=== PATIENT | male | born 1990 ===

== ENCOUNTER 2018-06-01 23:20 | Emergency (ER) | payer OTHER ==
[2018-06-02 00:13] VITALS: TEMP 97.6
--- NOTE | 2018-06-02 00:31 | ED PDOC ---
Arrival/HPI - General Chief Complaint: Upper Extremity Problem/Injury Time Seen by Provider: 06/02/18 00:18 Historian: Patient - History of Present Illness Narrative History of Present Illness (Text): 06/02/18 00:27 27 y/o M w/ no significant past medical history present to the emergency department accompanied by complaining of left elbow pain. 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 Patient reports pain exacerbates upon movement and has taken 2 tablets of Aleve for pain to some relief. Patient states he has kept his arm in one position, in a sling, and denies any shoulder pain or numbness or tingling in his left hand. Patient notes he has not had any previous left elbow issues. Patient denies any fever, chills, shortness of breath, chest pain, diarrhea, nausea, vomiting, urinary symptoms, back pain, neck pain, headache, dizziness, or any other complaints. 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) Past Medical History - Gastrointestinal Other/Comment: anal fissure - Psychiatric Hx Substance Use: No Family/Social History Smoking Status: Never Smoked Hx Alcohol Use: No Hx Substance Use: No Allergies/Home Meds Allergies/Adverse Reactions: Allergies No Known Allergies Allergy (Verified 06/02/18 00:01) Review of Systems - Physician Review All systems were reviewed & negative as marked: Yes - Review of Systems Constitutional: absent: Fevers, Night Sweats Respiratory: absent: SOB Cardiovascular: absent: Chest Pain Gastrointestinal: absent: Diarrhea, Nausea, Vomiting Genitourinary Male: absent: Urinary Output Changes Musculoskeletal: Other (+left elbow pain). absent: Back Pain, Neck Pain Neurological: absent: Headache, Dizziness Physical Exam Vital Signs Reviewed: Yes Vital Signs Temp Pulse Resp BP Pulse Ox 06/02/18 00:12 97.6 F 70 18 130/77 98 Temperature: Afebrile Blood Pressure: Normal Pulse: Regular Respiratory Rate: Normal Appearance: Positive for: Well-Appearing, Non-Toxic, Comfortable Pain Distress: None Mental Status: Positive for: Alert and Oriented X 3 - Systems Exam Head: Present: Atraumatic, Normocephalic Pupils: Present: PERRL Extroacular Muscles: Present: EOMI Conjunctiva: Present: Normal Mouth: Present: Moist Mucous Membranes Neck: Present: Normal Range of Motion Respiratory/Chest: Present: Clear to Auscultation, Good Air Exchange. No: Respiratory Distress, Accessory Muscle Use Cardiovascular: Present: Regular Rate and Rhythm, Normal S1, S2. No: Murmurs Abdomen: No: Tenderness, Distention, Peritoneal Signs Back: Present: Normal Inspection Upper Extremity: Present: Tenderness (+tenderness to palpation of left elbow joint), Swelling (+slight swelling of left elbow), Other (+pain upon extension and inflexion of left elbow) Lower Extremity: Present: Normal Inspection. No: Edema Neurological: Present: GCS=15, CN II-XII Intact, Speech Normal Skin: Present: Warm, Dry, Normal Color. No: Rashes Psychiatric: Present: Alert, Oriented x 3, Normal Insight, Normal Concentration Medical Decision Making ED Course and Treatment: 06/02/18 00:27 Impression 27 y/o M presenting with left elbow pain. Differential Diagnoses Include But Are Not Limited To: Plan --Toradol --Xray of left elbow --Reassess & disposition Progress Notes - RAD Interpretation Radiology Orders: 06/02/18 00:25 ELBOW LEFT 3 VIEWS ROUTINE [RAD] Stat - Medication Orders Current Medication Orders: Ketorolac Tromethamine (Toradol) 60 mg IM STAT STA Stop: 06/02/18 00:26 - Scribe Statement The provider has reviewed the documentation as recorded by the Kuldeepibe Magy Gamboa All medical record entries made by the Scribe were at my direction and personally dictated by me. I have reviewed the chart and agree that the record accurately reflects my personal performance of the history, physical exam, medical decision making, and the department course for this patient. I have also personally directed, reviewed, and agree with the discharge instructions and disposition. Disposition/Present on Arrival - Present on Arrival Any Indicators Present on Arrival: No History of DVT/PE: No History of Uncontrolled Diabetes: No Urinary Catheter: No History of Decub. Ulcer: No History Surgical Site Infection Following: None - Disposition Have Diagnosis and Disposition been Completed?: No Diagnosis: Elbow sprain Disposition: HOME/ ROUTINE Disposition Time: 02:00 Patient Plan: Discharge Condition: IMPROVED Discharge Instructions (ExitCare): Elbow Sprain (DC) Print Language: VIET[place]ESE Additional Instructions: All medical record entries made by the Scribe were at my direction and personally dictated by me. I have reviewed the chart and agree that the record accurately reflects my personal performance of the history, physical exam, medical decision making, and the department course for this patient. I have also personally directed, reviewed, and agree with the discharge instructions and disposition. Referrals: [facility] at [facility] [place] [Outside] - Follow up with primary Lisa Espinoza MD [Medical Doctor] - Follow up with primary Forms: [employer] (Georgian), WORK NOTE
[2018-06-02 02:27] VITALS: BP 112/82; PULSE 71; RESP 16; O2SAT 99
--- NOTE | 2018-06-02 11:26 | RAD ---
Date of service: 06/02/2018 PROCEDURE: Radiographs of the left elbow. HISTORY: pain w/ joint movement COMPARISON: No prior. FINDINGS: BONES: Normal. No fracture. JOINTS: Normal. No osteoarthritis. SOFT TISSUES: Normal. JOINT EFFUSION: None. OTHER FINDINGS: None IMPRESSION: Unremarkable radiographs of the left elbow.
== END 2018-06-02 02:27 | disposition home or self-care (01) ==
LOC: ED 23:20
DX: S53.402A Unspecified sprain of left elbow, initial encounter (principal); X50.0XXA Overexertion from strenuous movement or load, initial encounter; Y93.F2 Activity, caregiving, lifting; Y92.89 Other specified places as the place of occurrence of the external cause; Y99.0 Civilian activity done for income or pay
CPT/HCPCS: 73080; 96372; 99284; J1885